=== PATIENT | male | born 1970 | race Caucasian/White ===

== ENCOUNTER 2016-12-14 16:19 | Emergency (ER) | payer OTHER ==
[~2016-12-14 16:19] MED LIST: ALBUTEROL17 GM INH; ALPRAZOLAM PO; AMOXICILLIN PO; ANEXSIA 7.5/3251 TA1 PO; BACTRIM DS TABL1 TA1 PO; BACTRIM DS TABL1 TA2 PO; BLOOD PRESSURE MED PO; CLARITIN10 MG PO; DARVOCET-N 1001 TAB PO; DICLOFENAC SODI50 MG PO; DOLOBID500 MG PO; DOXYCYCLINE PO; EC-NAPROSYN500 MG PO; ERYTHROMYCIN O3.5 GM OD; FLEXERIL PO; FLEXERIL10 MG PO; HIGH BP MED PO; HIGH CHOLESTEROL MED PO; IBUPROFEN PO; KEFLEX PO; KEFLEX500 MG PO; KLONOPIN; KLONOPIN1 MG PO; LIBRIUM25 M1 PO; LISINOPRIL PO; LISINOPRIL20 MG PO; LORTAB 10-5001 EACH PO; LORTAB 10/500 T1 TAB PO; LORTAB 7.5-5001 TAB PO; LYRICA PO; MEDROL; MEDROL DOSE PAK; MEDROL PO; MEDROL4 MG/DOSE- PO; NAPROSYN PO; NAPROXEN PO; NEURONTIN PO; NEURONTIN300 MG PO; NO MEDICATIONS; NORCO 5/325 TAB1 TAB PO; NORFLEX100 M1 PO; PEN VK PO; PEN-VEE K PO; PERCOCET 10/3251 TAB PO; PERCOCET10 PO; PERCOCET5/325 PO; PHENERGAN PO; PHENERGAN25 MG PO; PREDNISONE PO; PREDNISONE50 MG PO; REMERON; REMERON30 MG PO; ROBAXIN 750750 MG PO; SIMVASTATIN40 MG PO; SKELAXIN PO; SKELAXIN400 MG PO; TOFRANIL PO; TYLENOL #3 PO; VIBRAMYCIN100 M1 PO; VISTARIL PO; VITAMIN D PO; VOLTAREN75 MG PO; XANAX XR0.5 MG PO; ZANAFLEX PO; ZESTRIL40 MG PO; ZITHROMAX PO; ZOCOR; ZOLOFT; ZOLOFT PO; ZOVIRAX PO
== END 2016-12-14 17:40 | disposition left against medical advice (07) ==
LOC: SED 16:19
DX: Z53.21 Procedure and treatment not carried out due to patient leaving prior to being seen by health care provider (principal)

== ENCOUNTER 2017-02-25 15:23 | Emergency (ER) | payer OTHER | END 2017-02-25 18:15 | disposition home or self-care (01) | LOC: SED 15:23 | DX: H10.9 Unspecified conjunctivitis (principal); R21 Rash and other nonspecific skin eruption; E78.5 Hyperlipidemia, unspecified; I10 Essential (primary) hypertension; F17.200 Nicotine dependence, unspecified, uncomplicated; Z79.899 Other long term (current) drug therapy; Z23 Encounter for immunization | CPT/HCPCS: 90471; 90715; 99283 ==